=== PATIENT | female | born 1995 | race Caucasian/White ===

== ENCOUNTER 2020-09-17 20:15 | Day surgery (SDC) | payer OTHER ==
[2020-09-17] MEDS ORDERED: ACETAMINOPHEN 1000 MG/100 ML VIAL (NON FORMULARY) IVPB ONE (21:17)
[2020-09-17] MEDS ORDERED: SODIUM CHLORIDE 1,000 ML IV STA (21:17)
[2020-09-17] MEDS ORDERED: FAMOTIDINE 20 MG TABLET PO ONE (21:17)
[2020-09-17 21:48] LABS: EPI CELLS 35 /uL (0-25.1); HYALINE CASTS 4 /uL (0-3.1); PH,URINE 5.5 (5.0-8.0); URINE APPEARANCE CLOUDY; URINE BACTERIA 1066 /uL (0-1359); URINE BILIRUBIN NEGATIVE (NEGATIVE); URINE COLOR YELLOW; URINE GLUCOSE (UA) NEGATIVE (NEGATIVE); URINE KETONE 4+ (NEGATIVE); URINE LEUK ESTERASE NEGATIVE (NEGATIVE); URINE NITRITE NEGATIVE (NEGATIVE); URINE PROTEIN 1+ (NEGATIVE); URINE RBC 31 /uL (0-23.9); URINE UROBILINOGEN 0.2 mg/dL (0.2-1.0); URINE WBC 16 /uL (0-25.8)
[2020-09-17 21:56] LABS: HCG,QUALITATIVE URINE Negative
[2020-09-17 22:24] LABS: BASO % 0.5 % (0-2.0); HEMATOCRIT 31.3 % (32.4-45.2); HEMOGLOBIN 9.4 GM/dL (10.7-15.3); LYMPH % 6.7 % (8-40); MCH 20.2 pg (25.7-33.7); MCHC 30.2 g/dl (32.0-36.0); MEAN CELL VOLUME 67.1 fl (80-96); MEAN PLT VOLUME 8.2 fl (7.5-11.1); MONO % 2.2 % (3.8-10.2); NEUT % 90.6 % (42.8-82.8); PLATELET COUNT 362 K/MM3 (134-434); RBC 4.66 M/mm3 (3.60-5.2); RDW 17.7 % (11.6-15.6); WHITE BLOOD COUNT 15.4 K/mm3 (4.0-10.0)
[2020-09-17 22:31] LABS: INR 1.02 (0.83-1.09); PROTHROMBIN TIME (PATIENT) 12.3 SEC (9.7-13.0)
[2020-09-17] MEDS ORDERED: FAMOTIDINE 20 MG TABLET ONE (22:34)
[2020-09-17] MEDS ORDERED: ACETAMINOPHEN INJECTION 100 ML IVPB ONE (22:34)
[2020-09-17 22:49] LABS: ANISOCYTOSIS 3+; MACROCYTOSIS 0; OVALOCYTE 1+; PLATELET ESTIMATE NORMAL
[2020-09-17 22:59] LABS: CALCIUM 9.2 mg/dL (8.5-10.1)
[2020-09-17 23:00] LABS: ALBUMIN 4.1 g/dl (3.4-5.0); BLOOD UREA NITROGEN 8.7 mg/dL (7-18)
[2020-09-17 23:03] LABS: CREATININE 0.6 mg/dL (0.55-1.3)
[2020-09-17 23:04] LABS: BILIRUBIN,TOTAL 0.7 mg/dL (0.2-1); TOT PROT 8.4 g/dl (6.4-8.2)
[2020-09-17] MEDS ORDERED: ONDANSETRON 4 MG/2 ML VIAL IVPUSH ONE (23:21)
[2020-09-17] MEDS ORDERED: ONDANSETRON 4 MG/2 ML VIAL ONE (23:33)
[2020-09-18] MEDS ORDERED: PIPERACILLIN/TAZOB 3.375 GM 3.375 GM in DEXTROSE 5%-WATER - 50 ML IVPB ONE (00:03)
[2020-09-18] MEDS ORDERED: PIPERACILLIN/TAZOB 3.375 GM 3.375 GM/50 ML BAG IVPB ONE (00:50)
[2020-09-18] MEDS ORDERED: ONDANSETRON 4 MG/2 ML VIAL IVPUSH PRN ×3 (01:40→15:01)
[2020-09-18] MEDS ORDERED: ACETAMINOPHEN 1000 MG/100 ML VIAL (NON FORMULARY) IVPB PRN ×3 (01:40→15:01)
[2020-09-18] MEDS: SODIUM CHLORIDE 1,000 ML IV SCH ×3 (02:07→16:22)
[2020-09-18] MEDS ORDERED: ONDANSETRON 4 MG/2 ML VIAL ONE ×2 (02:17→12:42)
[2020-09-18] MEDS ORDERED: morphine SULFATE 4 MG/ML VIAL IVPUSH PRN ×2 (02:31→21:57)
[2020-09-18] MEDS ORDERED: diphenhydrAMINE HCL 50 MG CAPSULE PO PRN (02:35)
[2020-09-18] MEDS ORDERED: morphine SULFATE 4 MG/ML VIAL ONE (03:53)
[2020-09-18 06:37] LABS: HEMATOCRIT 27.6 % (32.4-45.2); HEMOGLOBIN 8.5 GM/dL (10.7-15.3); MCH 20.4 pg (25.7-33.7); MCHC 30.8 g/dl (32.0-36.0); MEAN CELL VOLUME 66.4 fl (80-96); MEAN PLT VOLUME 7.9 fl (7.5-11.1); PLATELET COUNT 316 K/MM3 (134-434); RBC 4.16 M/mm3 (3.60-5.2); RDW 17.8 % (11.6-15.6); WHITE BLOOD COUNT 15.1 K/mm3 (4.0-10.0)
[2020-09-18 07:06] LABS: CALCIUM 8.5 mg/dL (8.5-10.1)
[2020-09-18 07:07] LABS: ALBUMIN 3.6 g/dl (3.4-5.0)
[2020-09-18 07:10] LABS: CREATININE 0.5 mg/dL (0.55-1.3); PHOSPHOROUS 3.2 mg/dL (2.5-4.9)
[2020-09-18 07:11] LABS: BILIRUBIN,TOTAL 0.9 mg/dL (0.2-1); TOT PROT 7.4 g/dl (6.4-8.2)
[2020-09-18] MEDS ORDERED: ACETAMINOPHEN INJECTION 100 ML IVPB ONE (07:19)
[2020-09-18] MEDS ORDERED: diphenhydrAMINE HCL 25 MG CAPSULE (FP) PO PRN ×2 (07:55→15:01)
[2020-09-18] MEDS ORDERED: DEXTROSE 5%-WATER - 50 ML IVPB ONE (09:46)
[2020-09-18] MEDS ORDERED: PIPERACILLIN/TAZOBACTAM 3.375 GM VIAL IVPB ONE (09:46)
[2020-09-18] MEDS ORDERED: PIPERACILLIN/TAZOB 3.375 GM 3.375 GM in DEXTROSE 5%-WATER - 50 ML IVPB SCH (10:00)
[2020-09-18 10:36] VITALS: BMI 24.7
[2020-09-18] MEDS ORDERED: BUPIVACAINE HCL 50 ML ONE (12:32)
[2020-09-18] MEDS ORDERED: LIDOCAINE HCL 2% JELLY (5 ML/TUBE) ONE (12:42)
[2020-09-18] MEDS ORDERED: LIDOCAINE HCL/PF 2% SDV 5ML VIAL ONE (12:42)
[2020-09-18] MEDS ORDERED: MIDAZOLAM HCL 2 MG/2 ML SINGLE DOSE VIAL ONE (12:45)
[2020-09-18] MEDS ORDERED: BUPIVACAINE HCL/PF 0.5% (5 MG/ML) 30 ML VIAL IJ ONE (12:55)
[2020-09-18] MEDS ORDERED: DESFLURANE GAS 240 ML BOTTLE IH ONE (13:05)
[2020-09-18] MEDS ORDERED: KETOROLAC TROMETHAMINE 30 MG/1 ML VIAL ONE (13:23)
[2020-09-18] MEDS ORDERED: GLYCOPYRROLATE 0.2 MG/1 ML VIAL ONE (13:23)
[2020-09-18] MEDS ORDERED: NEOSTIGMINE METHYLSULFATE 0.5 MG/1 ML - 10 ML MDV ONE (13:23)
[2020-09-18] MEDS ORDERED: ACETAMINOPHEN 500 MG TABLET (FP) PO PRN (14:16)
[2020-09-18] MEDS ORDERED: IBUPROFEN 800 MG/8 ML IJ IVPB PRN (15:01)
[2020-09-18] MEDS ORDERED: MORPHINE SULFATE 2 MG/ML VIAL IVPUSH PRN (15:01)
[2020-09-19 09:15] LABS: BASO % 0.4 % (0-2.0); EOS % 0.2 % (0-4.5); HEMATOCRIT 22.5 % (32.4-45.2); LYMPH % 38.2 % (8-40); MCH 20.7 pg (25.7-33.7); MCHC 30.4 g/dl (32.0-36.0); MEAN PLT VOLUME 8.6 fl (7.5-11.1); MONO % 6.4 % (3.8-10.2); NEUT % 54.8 % (42.8-82.8); PLATELET COUNT 234 K/MM3 (134-434); RBC 3.31 M/mm3 (3.60-5.2); RDW 17.8 % (11.6-15.6); WHITE BLOOD COUNT 5.9 K/mm3 (4.0-10.0)
[2020-09-19 09:25] LABS: HEMOGLOBIN 6.8 GM/dL (10.7-15.3)
[2020-09-19 09:38] LABS: CALCIUM 7.4 mg/dL (8.5-10.1)
[2020-09-19 09:41] LABS: MAGNESIUM 1.9 mg/dL (1.8-2.4)
[2020-09-19 09:42] LABS: BLOOD UREA NITROGEN 5.1 mg/dL (7-18)
[2020-09-19 09:45] LABS: BILIRUBIN,TOTAL 0.7 mg/dL (0.2-1); CREATININE 0.5 mg/dL (0.55-1.3); PHOSPHOROUS 2.2 mg/dL (2.5-4.9)
[2020-09-19 09:53] LABS: ALBUMIN 2.7 g/dl (3.4-5.0); TOT PROT 5.4 g/dl (6.4-8.2)
[2020-09-19] MEDS ORDERED: POTASSIUM CHLORIDE ORAL LIQUID 20 MEQ/15 ML PO ONE (10:00)
[2020-09-19] MEDS ORDERED: PT OWN MED DRAWER 7, Y5N ONE (10:56)
[2020-09-19] MEDS: SODIUM CHLORIDE 1,000 ML IV SCH (11:04)
[2020-09-19 14:33] VITALS: BP 112/48; PULSE 82; TEMP 98.3
[2020-09-19 14:38] LABS: HEMOGLOBIN 7.5 GM/dL (10.7-15.3); MCH 20.6 pg (25.7-33.7); MCHC 30.1 g/dl (32.0-36.0); MEAN CELL VOLUME 68.5 fl (80-96); MEAN PLT VOLUME 8.4 fl (7.5-11.1); PLATELET COUNT 266 K/MM3 (134-434); RBC 3.65 M/mm3 (3.60-5.2); RDW 18.2 % (11.6-15.6); WHITE BLOOD COUNT 5.4 K/mm3 (4.0-10.0)
[2020-09-19 16:48] LABS: HEMATOCRIT 26.1 % (32.4-45.2); HEMOGLOBIN 7.8 GM/dL (10.7-15.3); MCH 20.5 pg (25.7-33.7); MEAN CELL VOLUME 68.1 fl (80-96); MEAN PLT VOLUME 8.7 fl (7.5-11.1); PLATELET COUNT 285 K/MM3 (134-434); RBC 3.83 M/mm3 (3.60-5.2); RDW 17.9 % (11.6-15.6); WHITE BLOOD COUNT 5.7 K/mm3 (4.0-10.0)
[2020-09-19] MEDS ORDERED: IRON SUCROSE INJECTION 100 MG in SODIUM CHLORIDE 95 ML IVPB ONE (19:00)
== END 2020-09-19 21:00 | disposition home or self-care (01) ==
LOC: JER 20:15 → JERBED 09-18 00:36 → SUATTDRO 09-18 00:36 → UNDOADMIN 09-18 00:36 → JASUSAT 09-18 00:36 → JERBED 09-18 08:53 → J6S 09-18 08:53 → JASUSAT 09-19 21:00
PROVIDERS: ATTEND Internal Medicine
PROC: 0DTJ4ZZ Resection of Appendix, Percutaneous Endoscopic Approach (ICD-10-PCS; principal; 2020-09-18 12:00)
DX: K35.890 Other acute appendicitis without perforation or gangrene (principal)
CPT/HCPCS: 36415; 74177-TC; 80053; 81003; 82728; 83540; 83550; 83690; 83735; 84100; 84703; 85025; 85027; 85610; 86850; 86900; 86901; 87086; 88304-TC; 94760; 99285-25; C9803; J0131; J1756; Q9967; U0003; U0005